=== PATIENT | male | born 1960 | race Caucasian/White ===

== ENCOUNTER 2017-03-06 00:58 | Observation (INO) | payer OTHER ==
[2017-03-06] MEDS ORDERED: ASPIRIN 325 MG TAB PO ONE (01:03)
[2017-03-06] MEDS ORDERED: NS 1,000 ML IV ONE ×3 (01:04→03:05)
[2017-03-06] MEDS ORDERED: ASPIRIN 81 MG CHEWABLE TAB PO ONE (01:04)
[2017-03-06] MEDS ORDERED: ASPIRIN 81 MG CHEWABLE TAB ONE (01:04)
[2017-03-06] MEDS ORDERED: NITROGLYCERIN 0.4 MG BTL SL PRN ×2 (01:04→06:02)
--- NOTE | 2017-03-06 01:04 | EDPHY ---
H & P HPI/ROS: HPI CHIEF COMPLAINT: Chest pain HISTORY OF PRESENT ILLNESS: This patient 56-year-old male otherwise healthy no significant medical history except for bipolar disorder, on Zyprexa daily, presents emergency room left-sided chest pressure. Radiating to his left arm numbness or tingling. He states over the past 1-2 weeks he has had this symptom of pressure in his chest dull ache. Radiates to his left arm sometimes to his right arm with tingling. No nausea no diaphoresis no vomiting. Denies abdominal pain back pain or short of breath. No history of cardiac disease. He notices it more when he exerts himself. Currently upon arrival to the emergency room is complaining of chest pressure. 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 Family History: Noncontributory ROS REVIEW OF SYSTEMS: A comprehensive 10 point review of systems is otherwise negative aside from elements mentioned in the history of present illness. Exam Constitutional appears well nontoxic, triage nursing summary reviewed, vital signs reviewed, awake/alert. Eyes normal conjunctivae and sclera, EOMI, PERRLA. HENT normal inspection, atraumatic, moist mucus membranes, no epistaxis, neck supple/ no meningismus, no raccoon eyes. Respiratory clear to auscultation bilaterally, normal breath sounds, no respiratory distress, no wheezing. Cardiovascular rate normal, regular rhythm, no murmur, no edema, distal pulses normal. Gastrointestinal soft, non-tender, no rebound, no guarding, normal bowel sounds, no distension, no pulsatile mass. Genitourinary no CVA tenderness. Musculoskeletal no midline vertebral tenderness, full range of motion, no calf swelling, no tenderness of extremities, no meningismus, good pulses, neurovascularly intact. Skin pink, warm, & dry, no rash, skin atraumatic. Neurologic awake, alert and oriented x 3, AAOx3, moves all 4 extremities equally, motor intact, sensory intact, CN II-XII intact, normal cerebellar, normal vision, normal speech. Psychiatric normal mood/affect. Heme/Lymph/Immune no lymphadenopathy. Differential diagnosis includes but is not limited to: ACS, atypical chest pain , pneumothorax, pneumonia, pulmonary embolism, aortic dissection, congestive heart failure, tumor, musculoskeletal pain, esophageal pain, GERD, peptic ulcer disease, pancreatitis Medical Decision Making: Plan for this patient cloud consultant, IV establishment, EKG, full-dose aspirin, nitroglycerin for chest discomfort. Chest x-ray. Admit for ACS rule out. Re-evaluation: EKG interpretation by me on record in [employer] system. Impression time of EKG 116 this is sinus rhythm rate of 51. I do not appreciate ST elevation or significant ST depression or T-wave abnormalities. Nonischemic EKG. 0250: Patient reports to me that he still has chest pain but much improved. Will give him a dose of nitroglycerin to see if this improves his chest discomfort. Will repeat his EKG. Spoke with Dr. Milton Valdez this patient had a repeat EKG that is reading ST elevation early Re-pole pattern. Given the patient's story of chest discomfort and this being not seen on his 1st EKG I have asked Dr. Valdez to review this patient's EKG. The patient remains hemodynamically stable. Also nitroglycerin be given at this time. 0305: This patient's 2nd EKG is reading ST elevation. He does have hyperacute T-waves in V2 V3 V4 concerning for early ischemia injury pattern. I have consult with Dr. Milton Valdez. He recommends activated the crown and bridge dental lab technician. Will activate the cardiac catheterization lab at this time emergently for this patient go to have a cardiac catheterization. I have updated the family. He understands. He is agreeable for plan. 0306AM: Time of repeat EKG 2:33 a.m., this is sinus bradycardia in the 40s specifically 49, hyperacute T-waves V2 V3 V4 concerning for ischemia. I do not appreciate significant ST elevation. This is his 2nd EKG at somewhat changed from his 1st EKG. 0313AM: Updated patient and significant other at bedside. They are agreeable for admission. He understands to go to the cardiac catheterization suite for cardiac intervention. Dr. Milton Valdez updated. Patient hemodynamically stable. Still has chest discomfort 08/14. Source: Patient Constitutional: Initial Vital Signs Temperature (C) 36.4 C 03/06/17 01:05 Heart Rate 50 L 03/06/17 01:05 Respiratory Rate 14 03/06/17 01:05 Blood Pressure 124/84 H 03/06/17 01:05 O2 Sat (%) 97 03/06/17 01:05 O2 Delivery Mode Room Air Allergies/Adverse Reactions: No Known Allergies Allergy (Unverified 03/06/17 01:05) Home Medications: Medication Instructions Recorded Acyclovir [Zovirax 400 mg (*)] 400 mg PO DAILY PRN 03/06/17 Herbals/Supplements -Info Only 1 ea PO DAILY 03/06/17 OLANZapine [Zyprexa] 7.5 mg PO HS 03/06/17 Medical Decision Making - Data Points Laboratory Results: Laboratory Results 03/06/17 01:45 03/06/17 01:45 Medications Given: Aspirin Buffered (Aspirin Ec) 325 mg PO DAILY [facility]1983 Stop: 09/02/17 08:59 Last Admin: 03/06/17 10:09 Dose: 325 mg Lisinopril (Zestril) 2.5 mg PO DAILY [facility]1983 Stop: 09/02/17 08:59 Last Admin: 03/06/17 10:09 Dose: 2.5 mg Rosuvastatin Calcium (Crestor) 10 mg PO DAILY YAMILKA Stop: 09/02/17 08:59 Last Admin: 03/06/17 10:07 Dose: 10 mg Discontinued Medications Aspirin (Aspirin) 324 mg PO EDNOW ONE Stop: 03/06/17 01:04 Last Admin: 03/06/17 01:11 Dose: Not Given Aspirin (Aspirin) 324 mg PO EDNOW ONE Stop: 03/06/17 01:05 Last Admin: 03/06/17 01:10 Dose: 324 mg Sodium Chloride (Ns) 1,000 mls @ 0 mls/hr IV EDNOW ONE; Wide Open PRN Reason: Protocol Stop: 03/06/17 01:05 Last Admin: 03/06/17 02:00 Dose: 1,000 mls Sodium Chloride (Ns) 1,000 mls @ 0 mls/hr IV ONCE ONE PRN Reason: Wide Open Stop: 03/06/17 03:05 Last Admin: 03/06/17 03:15 Dose: 1,000 mls Sodium Chloride (Ns) 1,000 mls @ 0 mls/hr IV EDNOW ONE; Wide Open PRN Reason: Protocol Stop: 03/06/17 03:06 Last Admin: 03/06/17 06:19 Dose: Not Given Sodium Chloride (Ns) 1,000 mls @ 100 mls/hr IV CONT YAMILKA Stop: 03/06/17 16:14 Last Admin: 03/06/17 06:41 Dose: 1,000 mls Prasugrel (Effient) 60 mg PO ONCE ONE Stop: 03/06/17 06:03 Last Admin: 03/06/17 06:19 Dose: 60 mg Departure - Departure Disposition: [facility] Inpatient Acute Clinical Impression: Chest pain Qualifiers: Chest pain type: unspecified Qualified Code(s): R07.9 - Chest pain, unspecified Condition: Good
--- NOTE | 2017-03-06 01:18 | CPEKG ---
Heart Rate: 51 RR Interval: 1176 P-R Interval: 148 QRSD Interval: 100 QT Interval: 448 QTC Interval: 413 P Floweree: 60 QRS Floweree: 74 T Wave [place]: 63 EKG Severity - NORMAL ECG - EKG Impression: SINUS RHYTHM Electronically Signed By: Hermes Medellin 10-Mar-2017 16:56:56
[2017-03-06 02:03] LABS: ADD DIFF? NO; ADD MORPH? NO; ADD SCAN? NO; ATYPICAL LYMPHOCYTE FLAG 0 (0-99); FRAGMENT RBC FLAG 0 (0-99); HEMATOCRIT 43.7 % (40.0-51.0); HEMOGLOBIN 15.5 g/dL (13.7-17.5); LEFT SHIFT FLG 0 (0-99); LIPEMIA HEMOLYSIS FLAG 90 (0-99); MEAN CELL HEMOGLOBIN 31.8 pg (27.9-34.1); MEAN CELL HEMOGLOBIN CONCENTR. 35.5 g/dL (32.4-36.7); MEAN CELL VOLUME 89.7 fL (81.5-99.8); MEAN PLATELET VOLUME 11.1 fL (8.7-11.7); PLATELET CLUMPS FLAG 0 (0-99); PLATELET COUNT 146 10^3/uL (150-400); RED BLOOD CELL COUNT 4.87 10^6/uL (4.40-6.38); RED CELL DISTRIBUTION WIDTH 11.1 % (11.5-15.2)
[2017-03-06 02:11] LABS: APTT 31.8 SEC (23.0-38.0); INR 1.08 (0.83-1.16); PROTIME(PATIENT) 13.9 SEC (12.0-15.0)
[2017-03-06 02:16] LABS: ALANINE AMINOTRANSFERASE 45 IU/L (21-72); ALBUMIN 4.3 g/dL (3.5-5.0); ALKALINE PHOSPHATASE 51 IU/L (38-126); ANION GAP 14 mEq/L (8-16); ASPARTATE AMINOTRANSFERASE 32 IU/L (17-59); BILIRUBIN,TOTAL 0.8 mg/dL (0.1-1.4); BILIRUBIN-CONJUGATED 0.2 mg/dL (0.0-0.5); BILIRUBIN-UNCONJUGATED 0.6 mg/dL (0.0-1.1); CALCIUM 9.2 mg/dL (8.5-10.4); CARBON DIOXIDE 22 mEq/l (22-31); CHLORIDE 106 mEq/L (97-110); CREATININE 0.8 mg/dL (0.7-1.3); GLOMERULAR FILTRATION RATE > 60; GLUCOSE 83 mg/dL (70-100); POTASSIUM 3.9 mEq/L (3.5-5.2); SODIUM 142 mEq/L (134-144)
[2017-03-06 02:29] LABS: TROPONIN I < 0.012 ng/mL (0.000-0.034)
--- NOTE | 2017-03-06 02:35 | CPEKG ---
Heart Rate: 49 RR Interval: 1224 P-R Interval: 148 QRSD Interval: 98 QT Interval: 464 QTC Interval: 419 P [place]: 58 QRS [place]: 74 T Wave [place]: 65 EKG Severity - OTHERWISE NORMAL ECG - EKG Impression: SINUS BRADYCARDIA EKG Impression: ST ELEV, PROBABLE NORMAL EARLY REPOL PATTERN Electronically Signed By: Hermes Medellin 10-Mar-2017 16:56:48
[2017-03-06] MEDS ORDERED: NITROGLYCERIN 0.4 MG BTL SL ONE (02:49)
[2017-03-06] MEDS ORDERED: fentaNYL 100 MCG/2 ML INJ ONE ×2 (03:33→05:05)
[2017-03-06] MEDS ORDERED: LIDOCAINE 1% 300 MG/30 ML SDV ONE (03:33)
[2017-03-06] MEDS ORDERED: MIDAZOLAM 2 MG/2 ML VIAL ONE ×3 (03:34→05:22)
[2017-03-06] MEDS ORDERED: IOPAMIDOL (ISOVUE-370) 150 ML BTL IV ONE ×2 (03:34→05:14)
[2017-03-06] MEDS ORDERED: FAMOTIDINE 20 MG/NACL/50 ML BAG IV ONE (04:24)
[2017-03-06] MEDS ORDERED: BIVALIRUDIN 250 MG/5 ML VIAL IV ONE (04:43)
[2017-03-06] MEDS ORDERED: NITROGLYCERIN 1,500 MCG/15 ML VIAL MISC ONE (04:43)
[2017-03-06] MEDS ORDERED: PRASUGREL HCL 10 MG TAB ONE (05:32)
[2017-03-06] MEDS ORDERED: ATROPINE SULFATE 1 MG/10 ML SYR IVP PRN (06:02)
[2017-03-06] MEDS ORDERED: PRASUGREL HCL 10 MG TAB PO ONE (06:02)
[2017-03-06] MEDS ORDERED: TEMAZEPAM 15 MG CAP PO PRN (06:02)
[2017-03-06] MEDS ORDERED: ACETAMINOPHEN 325 MG TAB PO PRN (06:02)
[2017-03-06] MEDS ORDERED: ONDANSETRON 4 MG/2 ML VIAL IVP PRN (06:02)
[2017-03-06] MEDS ORDERED: LORazepam 2 MG/ML INJ IVP PRN (06:02)
[2017-03-06] MEDS ORDERED: ONDANSETRON DISINTEGRATING 4 MG TAB PO PRN (06:02)
[2017-03-06] MEDS ORDERED: NS 1,000 ML IV SCH (06:15)
--- NOTE | 2017-03-06 06:40 | CPEKG ---
Heart Rate: 49 RR Interval: 1224 P-R Interval: 156 QRSD Interval: 100 QT Interval: 476 QTC Interval: 430 P [place]: 65 QRS [place]: 75 T Wave [place]: 65 EKG Severity - OTHERWISE NORMAL ECG - EKG Impression: SINUS BRADYCARDIA Electronically Signed By: Sarthak Metzger 06-Mar-2017 17:17:22
[2017-03-06] MEDS ORDERED: LISINOPRIL 2.5 MG TAB PO SCH (09:00)
[2017-03-06 09:11] LABS: CHOLESTEROL 107 mg/dL (140-220); CHOLESTEROL/HDL RATIO 2.61 RATIO (1.00-4.97); HIGH DENSITY LIPOPROTEIN 41 mg/dL (40-65); LDL/HDL RATIO 1.41 RATIO (1.00-3.64); LOW DENSITY LIPOPROTEIN 58 mg/dL (80-100); NON-HIGH DENSITY LIPOPROTEIN 66 mg/dL (90-129); TRIGLYCERIDE 41 mg/dL (40-150); VERY LOW DENSITY LIPOPROTEINS 8 mg/dL (8-25)
[2017-03-06] MEDS: ROSUVASTATIN CALCIUM 10 MG TAB PO SCH (10:07)
--- NOTE | 2017-03-06 10:07 | GHP ---
[f rep st] HISTORY AND PHYSICAL DATE OF ADMISSION: 03/06/2017 ADDENDUM I was inadvertently disconnected from the service. I was completing the history and physical. IMPRESSION AND PLAN: The patient has unstable angina, as evidenced by EKG changes, his clinical sym ptoms, which are concerning for a threatened heart attack. He clearly has increase in CCS class 4 s ymptoms of angina with chest pain, chest pressure, and tightness that radiates into the left arm at rest. The patient will need urgent catheterization. I have explained the risks, benefits, and alte rnatives of this course of action to the patient, who understands the risks to be , loss of lif e or limb, stroke, and myocardial infarction. The expected benefit would be that if he is identifie d to have a threatening coronary lesion, there is proof of improved survival with an early invasive strategy in the treatment of those patients, and therefore cardiac catheterization would be consider ed a class 1 indication in this circumstance. /[id number]/MODL
[2017-03-06] MEDS: ASPIRIN EC 325 MG TAB PO SCH (10:09)
[2017-03-06] MEDS: LISINOPRIL 5 MG TAB PO SCH (10:09)
--- NOTE | 2017-03-06 10:27 | GHP ---
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 He was hiking up [place] and began to experience c hest pressure and tightness. He usually tries to keep his heart rate below 120 while hiking and dev eloped chest discomfort at that level near the top of [place]. He purposely slowed down, and ches t discomfort improved. He took it easy on the way down and seemed to feel well the following day; h owever, over the last 2 weeks he has had stuttering chest pressure and tightness that has come on wi th lower and lower levels of effort which made him concerned. This evening, he was awakened by ches t discomfort, pressure, and tightness which was 4/10 to 5/10 in severity and radiated into the media l aspect of his left arm. This was associated with constitutional symptoms of diaphoresis and mild shortness of breath. He ultimately decided to present to the emergency room around 12:30 in the [facility]. An EKG was obtained, which did not reveal an injury pattern. There were hyperacute T-waves o n the EKG. His chest pain was partially relieved by aspirin and improved also with nitroglycerin. A repeat EKG with negative troponin reveals ST-elevation in V2 and V3, which may have been consisten t in retrospect with ST depression and T-wave inversions that were deep and symmetrical posteriorly. The patient's chest discomfort continued to be a 2-3, waxing and waning at the time of our intervi ew. He did not feel well and did feel as if he was having a threatened heart attack. PAST MEDICAL HISTORY: Significant for bipolar 2 disorder, which is treated with Zyprexa. He does n ot know the dose. He also has an occasional medication induced tremor from the Zyprexa which is rel ieved in part by propranolol 10 mg. 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 He occasionally takes acyclovir 200 mg t.i.d. for active symptoms of that issue. ALLERGIES: He is not known to be allergic to medications. PAST SURGICAL HISTORY: Pertinent for repair of a finger which he lost in a chop saw accident. FAMILY HISTORY: Negative for premature cardiovascular . On his father's side of the fami ly, most individuals lasted to 100. His dad is in his 90s and in good health. 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 He mac s not smoke, abuse alcohol or illicit drugs. He is and has a single daughter who is current ly in college. PHYSICAL EXAMINATION: VITAL SIGNS: Blood pressure is 105/73, pulse 60 and regular, respirations 16 and unlabored. HEENT: His eyes were anicteric. His pupils were equal, round, and reactive to lig ht. His hearing appears to be normal. NECK: Reveals no JVD. No supraclavicular lymph nodes or po sterior triangle lymph nodes were noted. He has no carotid bruit. HEART: Reveals a normal S1 and S2 with a positive S4 gallop without murmur or rub. LUNGS: Clear to auscultation without wheezes, rales or rhonchi. He has normal air movement throughout both of his lungs and no prolongation of th e expiratory phase. ABDOMEN: Benign with positive bowel sounds. It is nontender and nondistended. I did not appreciate abdominal or aortic pulsation or abnormal mass. EXTREMITIES: Warm, dry and well perfused without significant peripheral edema. EKG: As previously mentioned. Troponin I is negative at less than 0.014 ng/mL. His CBC was normal. His other laboratory studies were pending at the time of this dictation. IMPRESSION AND PLAN: This patient is admitted with unstable angina. The EKG reveals hyperacute T-w aves across the anterior precordium, now with what was called ST-segment elevation but is most likel y posterior ST depression and T-wave inversion suggestive of an unstable coronary syndrome. Given t he fact the patient has resting chest pain that is responsive in part to aspirin and nitroglycerin, I think the patient should be taken urgently to the catheterization laboratory for definitive cathet erization. /[id number]/MODL
--- NOTE | 2017-03-06 11:16 | CPIP ---
[f rep st] INVASIVE CARDIAC PROCEDURE PROCEDURE PERFORMED: 1. Selective coronary angiography. 2. Left heart catheterization. 3. Left ventriculogram. 4. Intravascular ultrasound of the left circumflex/posterior descending artery. 5. Percutaneous transluminal coronary angioplasty and stent placement of the left circumflex/PDA wi th the use of a 2.5 x 28 Synergy drug-eluting stent. 6. Angio-Seal arteriotomy repair of a right common femoral artery access approach. COMPLICATIONS: None. FLIGHT TEST MECHANIC: Milton Valdez MD. INDICATION FOR THE PROCEDURE: Unstable crescendo angina in a patient with resting EKG changes, cons idered a class 1 indication for cardiac catheterization secondary to a high-risk clinical presentati on. The patient has CCS class 4 symptoms of angina, and no stress test was performed secondary to r esting angina. PROCEDURE IN DETAIL: After informed consent was obtained, n.p.o. status was confirmed, the patient was taken to cardiac catheterization laboratory. The region of the right groin was cleaned, prepped , and draped in sterile fashion. Approximately 15 cc of 1% lidocaine was utilized for local anesthe sigifredo. A micropuncture set was used to gain access to the right common femoral artery. A 6-Burundian sh eath was then placed using the modified Seldinger technique. The patient then underwent the previou sly mentioned diagnostic procedures with use of JR4 and JL4 curved coronary catheters, as well as a 6-[place] pigtail catheter. Standard wire exchange technique was utilized for all catheter exchanges . The left main coronary lumen is approximately 8 mm in size. It bifurcates quickly into an LAD and c ircumflex system. The LAD arises in its usual location as a 3.5 normal millimeter proximal vessel. It gives rise to 2 important diagonal vessels, and wraps around the apex to a significant degree. There is evidence of ANA M-III flow throughout the vessel. The circumflex vessel is dominant, giving rise to important obtuse marginal branches and the posterior descending artery. In the distal circ umflex as it exits the posterior AV groove and enters the interventricular sulcus posteriorly to for m the PDA, there is evidence of dye streaming and abnormal flow characteristics with ANA M-I flow in the vessel without complete opacification of the distal vessel in multiple views. The patient under went left heart catheterization, demonstrating elevated left ventricular end-diastolic pressure phani ured at 16 mmHg. The patient underwent left ventriculogram in the REAL projection, demonstrated pres erved and normal contractile cardiac function. Ejection fraction 65%. There was subtle basal infer ior hypokinesis in the region of the abnormal flow characteristics. There was no evidence of signif icant mitral valve prolapse or regurgitation. The aorta reveals 3 sinuses of Valsalva, which is mos t consistent with a trileaflet aortic valve, and there was no gradient upon pullback across the aort ic valve, indicating no evidence of aortic stenosis or outflow tract obstruction. We turned our attention to the lesion in question. A 6-[place]ian JL4 Womplyis guiding catheter was used for guide catheter support. A 0.014 Intuition wire was advanced across the lesion in question, and intravascular ultrasound with a standard setup from [email or web address] was used. It was clear that i n the distal vessel there was a 60% plaque area of stenosis with associated plaque rupture, and evid ence of flow behind the endothelial flap. This was felt to be the culprit lesion. The remainder of the blood vessel revealed minimal plaque formation, and was widely patent all the way to the level of the left main and aorta. The vessel was then primarily stented with a 2.5 x 28 Synergy drug-elut ing stent deployed at a maximum pressure of 14 atmospheres with 2 serial inflations. During the inf lation the patient had recurrent symptoms were reminiscent of his pain, and once the stent was impla nted, and the equipment was removed, the patient's angina was no longer present. We proceeded with post-dilation with use of a 2.75 x 15 Emerge compliant balloon, which was inflated to a maximum pressure of 14 and then 16 atmospheres in the proximal segment of the stent. Followin g post stent implantation dilation, there was evidence of excellent ANA M-III flow to the distal vess el, and there was no longer evidence of dye streaming within the distal left circumflex prior to the PDA. IMPRESSION: 1. Successful angioplasty and stent implantation for indication of unstable angina pectoris and cre scendo pattern, which is considered preinfarction, and therefore high risk for completion of a myoca rdial infarction. Therefore, an early invasive strategy has been successfully implemented. The pat ient will need to be admitted overnight for telemetry monitoring to be sure that he has not develop cardiac rhythm disturbance of any kind. 2. He will need to be on 325 of aspirin and Effient 10 for the first month, followed by 81 mg of as pirin and Effient 10 mg to complete 1 year of dual antiplatelet therapy. 3. Because plaque was identified, we will update a fasting lipid sample while he is here in the [facility], but the patient would benefit from stent implantation in regard to reduction in ev ents according to the data, and will be placed on rosuvastatin 10 mg p.o. daily for that reason. Th e patient denies a history of hypertension, dyslipidemia, or prior cardiac trouble. It will be reas onable to screen the patient for diabetes and dyslipidemia while he is here in the hospital. His ex ercise will be restricted for the next 7-10 days, and he is to return promptly to the Emergency Depa rtment should he experience chest discomfort, pressure, and tightness, or other clinical symptoms of concern. I turned over the care of this patient to my partners, Dr. Mukesh Johnson and Dr. Holland Collins, who are on for this weekend. /[id number]/MODL
[2017-03-06 21:11] LABS: TROPONIN I 0.137 ng/mL (0.000-0.034)
[2017-03-07 06:10] LABS: % IMMATURE GRANULYOCYTES 0.2 % (0.0-1.1); ABSOLUTE IMMATURE GRANULOCYTES 0.01 10^3/uL (0.00-0.10); ADD DIFF? NO; ADD MORPH? NO; ADD SCAN? NO; ATYPICAL LYMPHOCYTE FLAG 0 (0-99); FRAGMENT RBC FLAG 0 (0-99); HEMOGLOBIN 14.3 g/dL (13.7-17.5); LEFT SHIFT FLG 0 (0-99); LIPEMIA HEMOLYSIS FLAG 90 (0-99); MEAN CELL HEMOGLOBIN 31.9 pg (27.9-34.1); MEAN CELL HEMOGLOBIN CONCENTR. 34.9 g/dL (32.4-36.7); MEAN CELL VOLUME 91.5 fL (81.5-99.8); MEAN PLATELET VOLUME 11.1 fL (8.7-11.7); PLATELET CLUMPS FLAG 0 (0-99); PLATELET COUNT 124 10^3/uL (150-400); RED BLOOD CELL COUNT 4.48 10^6/uL (4.40-6.38); RED CELL DISTRIBUTION WIDTH 11.4 % (11.5-15.2)
[2017-03-07 06:31] LABS: ALBUMIN 3.5 g/dL (3.5-5.0); ANION GAP 11 mEq/L (8-16); ASPARTATE AMINOTRANSFERASE 27 IU/L (17-59); BILIRUBIN,TOTAL 1.2 mg/dL (0.1-1.4); CALCIUM 8.6 mg/dL (8.5-10.4); CARBON DIOXIDE 21 mEq/l (22-31); CHLORIDE 110 mEq/L (97-110); CREATININE 0.8 mg/dL (0.7-1.3); GLOMERULAR FILTRATION RATE > 60; GLUCOSE 83 mg/dL (70-100); LACTATE DEHYDROGENASE 336 IU/L (313-618); MAGNESIUM 1.9 mg/dL (1.6-2.3); POTASSIUM 4.1 mEq/L (3.5-5.2); SODIUM 142 mEq/L (134-144)
[2017-03-07] MEDS ORDERED: PRASUGREL HCL 10 MG TAB PO SCH (09:00)
[2017-03-07] MEDS: LISINOPRIL 5 MG TAB PO SCH (09:26)
[2017-03-07] MEDS: ROSUVASTATIN CALCIUM 10 MG TAB PO SCH (09:26)
[2017-03-07] MEDS: ASPIRIN EC 325 MG TAB PO SCH (09:26)
--- NOTE | 2017-03-07 09:36 | SOAPPROG ---
SOAP Progress Note Assessment/Plan: Assessment: 1. Coronary artery disease status post PCI. 2. Bipolar disease. Procedures: 03/06/2017 left heart catheterization coronary ventricular angiography with PCI and stenting. 03/07/17 09:33 Impression: Day 1. Post PCI for acute coronary syndrome. Patient is doing extraordinarily well without further symptoms. Stable hemodynamics. Plan for increased activity with discharge later today. Up ambulating the halls. Patient may shower. Continue current medical therapy. 90 minutes spent with patient in counseling. Subjective: No chest pain, PND, orthopnea, palpitations, syncope, near syncope. Objective: Vital Signs Temp Pulse Resp BP Pulse Ox 36.5 C 47 L 14 101/52 L 97 03/07/17 07:45 03/07/17 07:45 03/07/17 07:45 03/07/17 07:45 03/07/17 07:45 Laboratory Results 03/07/17 05:53 03/07/17 05:53 03/06/17 03/07/17 03/08/17 05:59 05:59 05:59 Intake Total 3600 1150 Output Total 2200 Balance 3600 -1050 PT 13.9 SEC (12.0-15.0) 03/06/17 01:45 INR 1.08 (0.83-1.16) 03/06/17 01:45 - Time Spent With Patient Time Spent With Patient: 90 min Physical Exam - Physical Exam General Appearance: alert, no apparent distress EENT: PERRL/EOMI Neck: non-tender, full range of motion Respiratory: chest non-tender, lungs clear Cardiac/Chest: normal peripheral pulses, regular rate, rhythm, No JVD Abdomen: normal bowel sounds Skin: normal color, warm/dry, No rash Lymphatic: no adenopathy Extremities: normal range of motion Neuro/Psych: no motor/sensory deficits, alert ICD10 Worksheet Patient Problems: Problems Problem Status Onset Chest pain Acute Past Medical History - Personal History Current Tetanus Diphtheria and Acellular Pertussis (TDAP): Yes Tetanus Vaccine Date: 2009 - Medical/Surgical History Hx Asthma: No Hx Chronic Respiratory Disease: No Hx Cardiac Disease: No Hx Diabetes: No Hx Renal Disease: No Hx Alcoholism: No Hx Cirrhosis: No Hx HIV/AIDS: No Hx Splenectomy or Spleen Trauma: No Other PMH: bipolar, vasectomy - Social History Smoking Status: Never smoked Review of Systems - Review of Systems Constitutional: no symptoms reported EENTM: no symptoms reported Respiratory: no symptoms reported Cardiac: no symptoms reported Gastrointestinal/Abdominal: no symptoms reported Genitourinary: no symptoms Musculoskelatal: no symptoms Skin: no symptoms Neurological: no symptoms Hematologic/Lymphatic: no symptoms reported Immunologic/allergic: no symptoms reported
[2017-03-07 16:05] VITALS: BP 90/64; PULSE 81; RESP 15; TEMP 98.1; O2SAT 95
--- NOTE | 2017-03-07 16:31 | ASMTCMCOM ---
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 Had a stent placed. Has a history of Bipolar and recent finger repair. Case Management doesn't anticipate this patient having discharge needs. Date Signed: 03/07/2017 04:30 PM Electronically Signed By:Esthela Escobar
--- NOTE | 2017-03-07 19:42 | PDDCSUM ---
Discharge Summary Discharge Summary: Admit: 03/06/2017 Discharge : 03/07/17 Admit Dx: Acute coronary syndrome Discharge Dx: Acute coronary syndrome s/p stent Procedure: Left heart catheterization with PCI of the PDA using intravascular ultrasound Follow up; Milton Valdez one week with referral to cardiac rehabilitation. Medications: per discharge form. Hospital course: 56 yo male admitted with acute chest and left arm pain. He was taken to the clinical laboratory assistant [place] my partner Dr. Valdez and underwent PCI of the PDA with intravascular ultrasound. He tolerated the procedure well. He was observed on telemetry overnight. He had no arrhythmia. LV function was preserved. 90 minutes was spent in counciling today. He is discharged in improved condition with follow up as above. Pending at discharge is a LP(a) to establish risk.
== END 2017-03-07 19:01 | disposition home or self-care (01) ==
LOC: INTOOBSV 03:07 → F2N 06:08
PROVIDERS: ADMIT Internal Medicine Cardiovascular Disease; ATTEND Internal Medicine Interventional Cardiology
DX: I25.110 Atherosclerotic heart disease of native coronary artery with unstable angina pectoris (principal); F31.81 Bipolar II disorder
CPT/HCPCS: 71010; 92928; 92978; 93005; 93458; 96360; 96361; 99285; C1725; C1753; C1769; C1887; G0378; 83695-90; C1760; C1874; C9600; J0583; J1200; J1644; J2250; J3010; Q9967

== ENCOUNTER → 2017-03-12 | Outpatient (CLI) | payer OTHER | LOC: FIMAGING 10:14 | PROVIDERS: ATTEND Internal Medicine Cardiovascular Disease | DX: I97.610 Postprocedural hemorrhage of a circulatory system organ or structure following a cardiac catheterization (principal); I82.411 Acute embolism and thrombosis of right femoral vein ==

== ENCOUNTER → 2017-06-02 | Outpatient (CLI) | payer OTHER | LOC: FIMAGING 11:37 | PROVIDERS: ATTEND Internal Medicine Cardiovascular Disease | DX: Z87.09 Personal history of other diseases of the respiratory system (principal) ==